=== PATIENT | female | born 2000 | race Caucasian/White ===

== ENCOUNTER 2025-05-31 08:43 | Emergency (ER) | payer BC ==
[~2025-05-31] VITALS: Ht 162.6 cm; Wt 64.0 kg
[~2025-05-31 08:43] MED LIST: METH2.5T PO; NABU-137 PO
[2025-05-31 08:49] VITALS: O2SAT 100
[2025-05-31 09:00] VITALS: TEMP 36.3
[2025-05-31] MEDS: IBUPROFEN 600MG TABLET PO ONE (09:13)
[2025-05-31] MEDS: SODIUM CHLORIDE 0.9% 1,000 ML IV ONE (09:13)
[2025-05-31 09:47] LABS: BASOPHILS % 1.1 % (0.0-2.0); EOSINOPHILS % 0.9 % (0.0-5.0); HEMATOCRIT. 36.4 % (36.0-48.0); HEMOGLOBIN. 12.0 g/dL (12.0-16.0); LYMPHOCYTES % 37.2 % (20.0-50.0); MEAN PLATELET VOLUME 7.5 fl (7.4-10.4); MONOCYTES % 8.8 % (2.0-8.0); NEUTROPHILS % 52.0 % (40.0-76.0); PLATELET 451 x1000/uL (130-400); RED BLOOD CELL COUNT 4.42 mill/uL (4.2-5.4); RED CELL DISTRIBUTION WIDTH 15.0 % (11.6-14.6)
[2025-05-31] MEDS ORDERED: POTASSIUM CHLORIDE 20MEQ TABLET SR PO ONE (10:00)
[2025-05-31 10:01] LABS: CREATININE 0.6 mg/dL (0.6-1.0); UREA NITROGEN BLOOD 15 mg/dL (9-23)
[2025-05-31 10:02] LABS: TROPONIN I HIGH SENSITIVITY < 4 ng/L (3.0-34)
[2025-05-31 10:05] LABS: HCG SCREEN NEGATIVE
[2025-05-31 10:23] VITALS: BP 103/68; PULSE 84; RESP 20; O2SAT 99
== END 2025-05-31 10:24 | disposition home or self-care (01) ==
LOC: ER 09:00
DX: R07.89 Other chest pain (principal); E87.6 Hypokalemia
CPT/HCPCS: 99285; 96360; 71045; 80048; 84703; 85025; 84484; 36415; 93005; J7030